=== PATIENT | male | born 1985 | race Caucasian/White ===

== ENCOUNTER 2025-03-08 12:21 | Emergency (ER) | payer MEDICAID ==
[~2025-03-08] VITALS: Ht 172.7 cm; Wt 66.0 kg
[2025-03-08 12:49] VITALS: TEMP 36.8; O2SAT 98
[2025-03-08 16:54] LABS: BASOPHILS % 1.3 % (0.0-2.0); EOSINOPHILS % 2.7 % (0.0-5.0); HEMATOCRIT. 43.8 % (42.0-52.0); HEMOGLOBIN. 14.4 g/dL (14.0-18.0); LYMPHOCYTES % 37.4 % (20.0-50.0); MEAN PLATELET VOLUME 8.7 fl (7.4-10.4); MONOCYTES % 11.0 % (2.0-8.0); NEUTROPHILS % 47.6 % (40.0-76.0); PLATELET 303 x1000/uL (130-400); RED BLOOD CELL COUNT 5.17 mill/uL (4.7-6.1); RED CELL DISTRIBUTION WIDTH 14.2 % (11.6-14.6)
[2025-03-08 17:06] LABS: CREATININE 0.7 mg/dL (0.6-1.3); UREA NITROGEN BLOOD 8 mg/dL (9-23)
[2025-03-08] MEDS ORDERED: IBUP-1455 MT (17:19)
[2025-03-08] MEDS: KETOROLAC 30MG/ML VIAL IM ONE (17:30)
[2025-03-08 17:33] VITALS: BP 122/75; PULSE 58; RESP 16; O2SAT 100
== END 2025-03-08 17:34 | disposition home or self-care (01) ==
LOC: ER 12:21
DX: R20.2 Paresthesia of skin (principal); Z88.0 Allergy status to penicillin
CPT/HCPCS: 80048; 85025; 36415; 96372; 99283; J1885; Z7610